=== PATIENT | female | born 1935 | race Caucasian/White ===

== ENCOUNTER 2017-08-28 17:37 | Emergency (ER) | payer OTHER ==
[~2017-08-28] VITALS: Ht 149.9 cm; Wt 59.0 kg
--- NOTE | 2017-08-28 17:52 | NUR ---
PT TO CT VIA WHEELCHAIR PER TECH.
[2017-08-28 18:08] VITALS: BP 133/72
--- NOTE | 2017-08-28 18:15 | NUR ---
PT BIB GRANDDAUGHTER FOR EVALUATION OF BUMP TO HEAD AND HEADACHE & R ARM PAIN S/P FALL AT 0330. HX DM, HTN. GRANDDAUGHTER DENIES ANY LOC. AAOX4 WITH EVEN AND UNSTEADY GAIT; LUNGS CLEAR BL; PATIENT STATES PAIN OF 10/10 AT THIS TIME; VSS; PATIENT POSITIONED FOR COMFORT; HOB ELEVATED; BEDRAILS UP X2; BED DOWN. ER MADE AWARE OF PT STATUS. Addendum: 08/28/17 at 1835 by [email or web address] R ARM FRCTURE X 2 YEARS AGO.
--- NOTE | 2017-08-28 18:24 | NUR ---
Patient being evaluated by DR GRAMAJO at bedside.
[2017-08-28] MEDS ORDERED: ACETAMINOPHEN EXTRA STRENGTH 500 MG TAB PO ONE (18:25)
--- NOTE | 2017-08-28 19:15 | NUR ---
Patient being evaluated by Dr. Medina at bedside.
--- NOTE | 2017-08-28 19:19 | NUR ---
Pt report given to BRAYAN; [employer] W[employer]ER. Transfer of care at this time.
--- NOTE | 2017-08-28 19:40 | NUR ---
ASSUMED CARE OF PT. PT SITTING IN WHEELCHAIR AT BEDSIDE. PT HAS NO OTHER COMPLAINTS EXCEPT RT. ELBOW. RT ELBOW ELEVATED AND PLACED ON A PILLOW FOR COMFORT
[2017-08-28 20:34] LABS: EOSINOPHILS # (AUTO) 0.3 K/uL (0-0.4)
[2017-08-28 20:40] LABS: BASOPHILS # (AUTO) 0.4 K/uL (0.00-0.22); HEMATOCRIT 38.1 % (36-48); HEMOGLOBIN 12.7 g/dL (12.0-16.0); LYMPHOCYTES # (AUTO) 1.9 K/uL (2.5-16.5); MEAN CORPUSCULAR HEMOGLOBIN 32 pg (27-31); MEAN CORPUSCULAR HGB CONC 33 g/dL (33-37); MEAN CORPUSCULAR VOLUME 97 fL (80-94); MONOCYTES # (AUTO) 0.3 K/uL (0.8-1.0); NEUTROPHILS # (AUTO) 4.7 K/uL (1.8-7.7); PLATELET COUNT (AUTO) 262 K/uL (140-450); RED BLOOD CELL COUNT(AUTO) 3.94 MIL/uL (4.20-5.40); RED CELL DISTRIBUTION WIDTH 12.5 % (11.6-13.7); WHITE BLOOD COUNT (AUTO) 7.6 K/uL (4.8-10.8)
[2017-08-28 20:49] LABS: ANION GAP 16.4 (8-16); CARBON DIOXIDE 23.9 mmol/L (21-32); CHLORIDE 103 mmol/L (98-107); CREATININE 1.6 mg/dL (0.6-1.3); GLUCOSE 99 mg/dL (74-106); POTASSIUM 4.3 mmol/L (3.5-5.1); SODIUM SERUM 139 mmol/L (136-145); UREA NITROGEN, BLOOD 26 mg/dL (7-18)
[2017-08-28 20:57] LABS: ALBUMIN 3.4 g/dL (3.4-5.0); ASPARTATE AMINOTRANSFERASE 37 U/L (15-37); TOTAL BILIRUBIN 0.3 mg/dL (0.0-1.0)
[2017-08-28 21:40] VITALS: BP 130/70
--- NOTE | 2017-08-28 21:40 | NUR ---
Patient to be transferred to [facility]. Is being transferred due to need of orthopedic surgery. Receiving facility has accepting physician and available space. ER physician has signed transfer form. Patient or responsible libertarian has agreed to transfer and signed form. Patient belongings inventoried and will be sent with patient. Copy of nursing notes, lab reports, EKG, Physicians Orders and X-rays to be sent with patient. Report called to Baljit Adan RN at receiving facility. [facility] ambulance service has been called for transfer. ETA is 45 min.
--- NOTE | 2017-08-28 22:02 | NUR ---
[facility] ER CALLED TO NOTIFY OF PT SELF TRANSFER. ER CHARGE IS INAVAILABLE AT THIS TIME. I WAS ASK TO CALL BACK 20MIN AND SPEAK TO FIONA Adan RN / ER CHARGE AT [phone].
--- NOTE | 2017-08-28 22:53 | NUR ---
REPORT CALLED TO FIONA Adan AT [facility] ER.
== END 2017-08-28 21:40 | disposition home or self-care (01) ==
LOC: MED 17:37
DX: S42.411A Displaced simple supracondylar fracture without intercondylar fracture of right humerus, initial encounter for closed fracture (principal); S09.90XA Unspecified injury of head, initial encounter; R94.31 Abnormal electrocardiogram [ECG] [EKG]; I10 Essential (primary) hypertension; E11.9 Type 2 diabetes mellitus without complications; W18.2XXA Fall in (into) shower or empty bathtub, initial encounter; Y93.F1 Activity, caregiving, bathing; Y92.091 Bathroom in other non-institutional residence as the place of occurrence of the external cause; Y99.8 Other external cause status
CPT/HCPCS: 29105; 36415; 70450; 73080; 80053; 82948; 84484; 85025; 93005; 99285